=== PATIENT | female | born 1945 | race Caucasian/White ===

== ENCOUNTER → 2016-06-27 | Outpatient (CLI) | payer MEDICARE, BC ==
--- NOTE | 2016-06-27 12:54 | CR ---
EXAMINATION: Right knee HISTORY: Pain COMPARISON: 07/18/2015 TECHNIQUE: 4 views there is osteophyte formation with mild cortical undulation noted within the medi al and lateral compartments however underlying joint spaces appear grossly preserved. Severe joint s pace narrowing and ossified formation is noted within the patellofemoral compartment. There is a tra ce joint effusion. No soft tissue swelling. FINDINGS/IMPRESSION: 1. 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
== END ==
LOC: MW.CHORTHO 07:46
PROVIDERS: ATTEND Orthopaedic Surgery
DX: M25.561 Pain in right knee (principal); M17.11 Unilateral primary osteoarthritis, right knee
CPT/HCPCS: 73564-26-RT; 73564-RT; G0463

== ENCOUNTER 2025-02-02 06:32 | Observation (INO) | payer MEDICARE, BC ==
[~2025-02-02 06:32] MED LIST: Sodium Chloride 0.9% 10 ML Syringe FLUSH PRN; Sodium Chloride 0.9% 2.5 ML Syringe FLUSH PRN
[2025-02-02] MEDS ORDERED: Ropivacaine 0.5% 5 MG/ML 30 ML SDV ONE (06:44)
[2025-02-02] MEDS ORDERED: dexmedeTOMIDine HCl 200 MCG/2 ML SDV ONE (06:45)
[2025-02-02] MEDS ORDERED: Propofol 200 MG/20 ML SDV ONE (06:46)
[2025-02-02] MEDS ORDERED: propofoL 500 MG/50 ML 50 ML ONE (06:54)
[2025-02-02] MEDS ORDERED: Ropivacaine 49.25 ML, Ketorolac 30 MG, EPINEPHrine 0.5 MG, cloNIDine 80 MCG in Sodium C... INJECT SCH (07:00)
[2025-02-02] MEDS ORDERED: Ondansetron 4 MG/2 ML SDV IVPUSH PRN ×2 (07:01→12:00)
[2025-02-02] MEDS ORDERED: fentaNYL 50 MCG/ML SDV IVPUSH PRN (07:01)
[2025-02-02] MEDS ORDERED: Albuterol 0.083% 2.5 MG/3 ML Neb Soln NEB PRN (07:01)
[2025-02-02] MEDS ORDERED: Naloxone 0.4 MG/ML SDV IVPUSH PRN (07:01)
[2025-02-02] MEDS: Lactated Ringers 1,000 ML IV SCH (07:05)
[2025-02-02] MEDS ORDERED: Ketamine 500 mg/10 ML MDV ONE (07:19)
[2025-02-02] MEDS ORDERED: fentaNYL 100 MCG/2 ML SDV ONE (07:25)
[2025-02-02] MEDS ORDERED: ceFAZolin 2 GM in Water For Injection, Sterile 20 ML IVPUSH ONE (08:00)
[2025-02-02] MEDS ORDERED: ePHEDrine 50 MG/ML SDV ONE (09:10)
[2025-02-02 12:04] LABS: BASOPHILS ABSOLUTE AUTO 0.03 K/uL (0.00-0.20); BASOPHILS PERCENT AUTO 0.5 % (0.0-1.0); EOSINOPHILS ABSOLUTE AUTO 0.00 K/uL (0.00-0.45); EOSINOPHILS PERCENT AUTO 0.0 % (0.0-6.0); IMMATURE GRAN ABSOLUTE AUTO 0.01 K/uL (0.00-0.05); IMMATURE GRAN PERCENT AUTO 0.2 % (0.0-0.4); LYMPHOCYTES ABSOLUTE AUTO 1.71 K/uL (1.00-4.80); LYMPHOCYTES PERCENT AUTO 28.3 % (24.0-44.0); MEAN PLATELET VOLUME 10.8 fL (9.4-12.3); MONOCYTES ABSOLUTE AUTO 0.51 K/uL (0.00-0.80); MONOCYTES PERCENT AUTO 8.4 % (0.0-8.0); NEUTROPHILS ABSOLUTE AUTO 3.78 K/uL (1.80-7.70); NEUTROPHILS PERCENT AUTO 62.6 % (41.0-71.0); NRBC ABSOLUTE 0.00 K/uL (0.00-0.02); NRBC PERCENT 0.0 /100WBC (0.0-0.2); PLATELET COUNT,PLT 139 K/uL (150-400); RED BLOOD CELL COUNT 3.68 M/uL (4.10-5.30); WHITE BLOOD CELL COUNT,WBC 6.04 K/uL (3.9-11.3)
[2025-02-02 12:26] LABS: BLOOD UREA NITROGEN,BUN 30.0 mg/dL (7.0-18.0); CARBON DIOXIDE,CO2 28.2 mmol/L (21.0-32.0); CHLORIDE,CL 105.0 mmol/L (98-107); CREATININE 1.4 mg/dL (0.6-1.0); EST CRCL DRUG DOSING (CG) 31.69 mL/min; GLUCOSE RANDOM 168.0 mg/dL (74-106); POTASSIUM,K 5.4 mmol/L (3.5-5.1); SODIUM,NA 139.0 mmol/L (136-145)
[2025-02-02 12:28] LABS: ESTIMATED GFR 38.0 mL/min (>60)
[2025-02-02] MEDS ORDERED: 50% Dextrose in Water 50 ML Syringe IVPUSH PRN (13:41)
[2025-02-02] MEDS: Magnesium Sulfate 2 GM/50 mL 2 GM in Premix Bag 1 BAG IV ONE (13:49)
[2025-02-02] MEDS: PILOCARPINE 2% EYEBOTH SCH (14:46)
[2025-02-02] MEDS: ceFAZolin 2 GM in Water For Injection, Sterile 20 ML IVPUSH ONE (16:25)
[2025-02-02] MEDS: LATANOPROST 0.005% EYEBOTH SCH (21:12)
[2025-02-03 06:34] LABS: BLOOD UREA NITROGEN,BUN 38.0 mg/dL (7.0-18.0); CARBON DIOXIDE,CO2 22.3 mmol/L (21.0-32.0); CHLORIDE,CL 104.0 mmol/L (98-107); CREATININE 1.7 mg/dL (0.6-1.0); EST CRCL DRUG DOSING (CG) 26.09 mL/min; GLUCOSE RANDOM 180.0 mg/dL (74-106); POTASSIUM,K 5.1 mmol/L (3.5-5.1); SODIUM,NA 136.0 mmol/L (136-145)
[2025-02-03 06:36] LABS: ESTIMATED GFR 30.0 mL/min (>60)
[2025-02-03] MEDS: TIMOLOL MALEATE 0.5% EYEBOTH SCH (09:29)
[2025-02-03 12:18] VITALS: BP 147/67; PULSE 73
== END 2025-02-03 12:50 | disposition home or self-care (01) ==
LOC: MW.SDS 06:32 → MW.MS 11:42
PROVIDERS: ADMIT Orthopaedic Surgery; ATTEND Orthopaedic Surgery
DX: M17.11 Unilateral primary osteoarthritis, right knee (principal); E78.00 Pure hypercholesterolemia, unspecified; E66.9 Obesity, unspecified; I12.9 Hypertensive chronic kidney disease with stage 1 through stage 4 chronic kidney disease, or unspecified chronic kidney disease; E11.22 Type 2 diabetes mellitus with diabetic chronic kidney disease; N18.30 Chronic kidney disease, stage 3 unspecified; K21.9 Gastro-esophageal reflux disease without esophagitis; E87.5 Hyperkalemia; Z88.1 Allergy status to other antibiotic agents; Z88.8 Allergy status to other drugs, medicaments and biological substances; Z79.82 Long term (current) use of aspirin; Z79.84 Long term (current) use of oral hypoglycemic drugs; Z87.891 Personal history of nicotine dependence; Z79.899 Other long term (current) drug therapy; Z96.651 Presence of right artificial knee joint
CPT/HCPCS: 27447; 36415; 73560; 80048; 82947; 83735; 85014; 85018; 85025; 86850; 86900; 86901; 86922; 97110; 97116; 97161; 97530; A4216; A9270; C1776; J0166; J0690; J0735; J1308; J2704; J2795; J3010; J3475; J3490; J7120; 01402; 64447; 99100; J0665; J1885